=== PATIENT | female | born 1980 | race Caucasian/White ===

== ENCOUNTER 2018-07-10 11:46 | Inpatient (IN) ==
[2018-07-10] MEDS ORDERED: 0.9 % Sodium Chloride 1,000 ML IVC ONE ×3 (12:29→14:37)
[2018-07-10] MEDS ORDERED: cefTRIAXone 1,000 MG in Water for inj. (sterile) 20 ML 10 ML IVP ONE (12:42)
[2018-07-10] MEDS ORDERED: Ondansetron 4 MG/2 ML VIAL IVP ONE (12:43)
[2018-07-10] MEDS ORDERED: *HR* FentaNYL (PF) 100 MCG/2 ML VIAL IVP ONE (12:43)
[2018-07-10 12:44] LABS: Bilirubin,Urine Small (Negative); Blood,Urine Large (Negative); Clarity,Urine Turbid (Clear); Color,Urine Dark Yellow (Yellow); Glucose,Urine (UA) Normal (Normal); Ketones,Urine Trace mg/dL (Negative); Leukocyte Esterase,Urine Large (Negative); Nitrite,Urine Positive (Negative); PH,Urine 5.5 pH Units (5.0-8.0); Protein,Urine 100 mg/dL (Neg-Trace); Specific Gravity,Urine 1.019 (1.010-1.025); Urobilinogen,Urine Normal (Normal)
[2018-07-10 12:48] LABS: Bacteria,Urine Many per hpf (None-Few); Hyaline Casts,Urine Few per lpf (None-Few); RBC,Urine 15-30 per hpf (0-3); Squamous Epithelial Cell,Urine Many per lpf (None-Few); WBC,Urine TNTC per hpf (0-3)
[2018-07-10 13:23] LABS: Basophils # 0.1 K/mcL (0.0-0.2); Basophils % 0.4 %; Hematocrit 40.7 % (35.3-44.9); Hemoglobin 13.7 g/dL (11.5-15.4); Immature Granulocytes % 1.7 % (0-4); Lymphocytes # 0.9 K/mcL (0.6-4.6); Lymphocytes % 3.4 %; Mean Corpuscular HGB Conc 33.7 g/dL (31.6-35.5); Mean Corpuscular Hemoglobin 27.3 pg (28.0-33.3); Mean Corpuscular Volume 81.1 fL (83.0-100.0); Mean Platelet Volume 12.3 fL (9.4-12.4); Monocytes % 8.1 %; Neutrophils # 21.5 K/mcL (1.6-8.9); Platelet Count 229 K/mcL (140-400); Red Blood Count 5.02 M/mcL (3.82-4.97); Red Cell Distribution Width 14.3 % (11.5-14.5); Segmented Neutrophils % 86.4 %
[2018-07-10 13:33] LABS: INR 1.2
[2018-07-10 13:36] LABS: Activated Partial Thrombo Time 34.4 Seconds (26.0-36.0)
--- NOTE | 2018-07-10 13:43 | Emergency Department Note ---
Disposition Clinical Impression: Sepsis, Pyelonephritis, Hypokalemia, Hypophosphatemia Disposition: Admitted As Inpatient Condition: Serious Referrals: NONE,PCP [Primary Care Provider] - Forms: ED Satisfaction Letter, Work/School Release Time of Disposition: 14:20 Abdominal Pain HPI - General Chief Complaint: ED Abdominal Pain Stated Complaint: Left Flank pain/vomiting Time Seen by Provider: 07/10/18 12:31 Source: patient - History of Present Illness HPI Narrative: Patient presents emergency room with chief complaint of progressively increasing right flank pain, difficulty with urination, fevers, generalized weakness nausea and vomiting. She states that she was seen in urgent care diagnosed with a UTI she was sent over here to be admitted, but did not make it over here for 2 days, then she came to the ER 2 days ago but did not like the way she was treated so she left. She is supposed to be on antibiotics but she is not taking any antibiotics. She does endorse that she uses methamphetamine, although her states that she has not used for 2 weeks. She is a smoker denies alcohol. She denies headache neck pain chest pain or short of breath she endorses generalized fatigue and nausea and vomiting and progressive right flank pain with some urinary symptoms. She denies any other abdominal pain. She denies rashes. She denies midline back pain numbness weakness. She denies bowel or bladder incontinence. The patient states that she just overall feels terrible. Pain Scale: 10 - Related Data Allergies Allergy/AdvReac Type Severity Reaction Status Date / Time No Known Allergies Allergy Verified 07/10/18 11:59 All systems ED: reviewed and negative except as stated. 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 Psychiatric history: Reports: anxiety, depression - Social History Smoking status: Current every day smoker Alcohol use: Reports: none Drug use: Reports: methamphetamine, IV Drug Use Physical Exam - General Limitations: no limitations General appearance: alert, in no apparent distress, other (Abdominal appearance, slightly dehydrated in appearance however alert awake talking and nontoxic) - Head Head exam: atraumatic, normocephalic, normal inspection - Eye Eye exam: Present: normal appearance, PERRL, EOMI - Expanded Eye Exam Pupils: Left: reactive - ENT ENT exam: normal exam, normal oropharynx, mucous membranes moist - Expanded ENT Exam External ear exam: Present: normal external inspection Mouth exam: Present: normal external inspection Teeth exam: Present: normal inspection Throat exam: Present: normal inspection - Neck Neck exam: Present: normal inspection, full ROM, trachea midline, other (No rigidity). Absent: thyromegaly - Chest Chest inspection: Present: normal inspection, symmetric chest wall rise - Respiratory Respiratory exam: Present: normal lung sounds bilaterally - Cardiovascular Cardiovascular exam: Present: normal rhythm, tachycardia (Heart rate of 120 on the monitor), normal heart sounds. Absent: regular rate - Abdominal Exam Abdominal exam: Present: soft, Non-Tender, tenderness (No significant anterior intra-abdominal tenderness there is some mild right mid abdominal tenderness, more notably right CVA and flank tenderness.). Absent: distention, guarding, rebound, rigidity, Shoemaker's sign, Rovsing's sign, tenderness at McBurney's Point - Extremities Exam Extremities exam: Present: normal inspection, full ROM. Absent: tenderness, pedal edema - Expanded Upper Extremity Exam Shoulder exam: Present: normal inspection, full ROM Arm exam: Present: normal inspection, full ROM Elbow exam: Present: normal inspection, full ROM Forearm/Wrist exam: Present: normal inspection, full ROM Hand exam: Present: normal inspection, full ROM Vascular exam: Normal: capillary refill, radial pulse - Expanded Lower Extremity Exam Hip/Pelvis exam: Present: normal inspection, full ROM Upper leg exam: Present: normal inspection, full ROM Knee exam: Present: normal inspection, full ROM Lower leg exam: Present: normal inspection, full ROM Ankle exam: Present: normal inspection, full ROM Foot/toe exam: Present: normal inspection, full ROM Neurovascular/Tendon exam: Present: normal capillary refill. Absent: pulse d eficit, motor deficit, sensory deficit, tendon deficit - Back Exam Back exam: Present: normal inspection, full ROM. Absent: tenderness - Neurological Exam Neurological exam: Present: alert, oriented X3, CN II-XII intact, reflexes normal. Absent: motor sensory deficit - Expanded Neurological Exam Patient oriented to: Present: person, place, time Coma Scale Eye Opening: Spontaneous Coma Scale Motor Response: Obeys Commands Coma Scale Verbal Response: Oriented Coma Scale Total: 15 - Psychiatric Psychiatric exam: Present: normal affect, normal mood - Skin Skin exam: Present: warm, dry, intact, normal color - Other Other exam information: No generalized petechiae, no clinic lungs a cauda equina syndrome normal strength sensation and reflexes in lower extremities with no saddle anesthesia Course Vital Signs Temperature 97.6 F 07/10/18 11:57 Pulse Rate 114 07/10/18 11:57 Respiratory Rate 16 07/10/18 11:57 Blood Pressure 82/60 07/10/18 11:57 O2 Sat by Pulse Oximetry 100 07/10/18 11:57 Temperature 97.6 F 07/10/18 11:57 Pulse Rate 109 07/10/18 13:17 Respiratory Rate 20 07/10/18 13:17 Blood Pressure 96/66 07/10/18 13:17 O2 Sat by Pulse Oximetry 100 07/10/18 13:17 Oxygen Delivery Oxygen Delivery Room Air Abdominal Pain - MDM Narrative Medical decision making narrative: I did review her most recent evaluation she definitely had a UTI, but left without any further treatment she has not been on antibiotics. She presents with tachycardia, reported fevers nausea vomiting flank pain, initial blood pressure in triage was 82/60 however upon arrival to the room is over 100 systolic, with a map greater than 65. Sepsis order set was utilized. She was given 30 mL/kg bolus of IV fluids, she was started on IV Rocephin. White blood cell count is elevated at 24,900, lactic acid is 4.3 urinalysis consistent with UTI. Patient sent for CT scan of the abdomen and pelvis to evaluate for p yelonephritis or other acute intra-abdominal process. Potassium was low at 2.9 supple with IV potassium. No evidence of renal failure. Phosphorus is also low at 1.[address] scan of the abdomen and pelvis shows evidence for pyelonephritis without kidney stone, with swollen appearance of the right kidney with perinephric stranding. Patient was admitted to the hospital for further evaluation and management of urosepsis with pyelonephritis. Vital signs remained with a map above 65, with improving tachycardia here in the ER. Total critical care time by by myself excluding any procedures performed is 30 minutes - Lab Data Result diagrams: 07/10/18 12:30 07/10/18 12:30 Lab Results 07/10/18 07/10/18 07/10/18 Range/Units 12:08 12:30 12:30 WBC 24.9 H (4.3-11.1) K/mcL RBC 5.02 H (3.82-4.97) M/mcL Hgb 13.7 (11.5-15.4) g/dL Hct 40.7 (35.3-44.9) % MCV 81.1 L (83.0-100.0) fL MCH 27.3 L (28.0-33.3) pg MCHC 33.7 (31.6-35.5) g/dL RDW 14.3 (11.5-14.5) % Plt Count 229 (140-400) K/mcL MPV 12.3 (9.4-12.4) fL Immature Gran % 1.7 (0-4) % Seg Neutrophils % 86.4 % Lymphocytes % 3.4 % Monocytes % 8.1 % Eosinophils % 0.0 % Basophils % 0.4 % Neutrophils # 21.5 H (1.6-8.9) K/mcL Lymphocytes # 0.9 (0.6-4.6) K/mcL Monocytes # 2.0 H (0.0-1.3) K/mcL Eosinophils # 0.0 (0.0-0.6) K/mcL Basophils # 0.1 (0.0-0.2) K/mcL Toxic Vacuolation Present A (Not Present) Platelet Estimate Normal (Normal) PT 14.0 H (9.4-12.1) Seconds INR 1.2 APTT 34.4 (26.0-36.0) Seconds Sodium (136-145) mEq/L Potassium (3.5-5.1) mEq/L Chloride (98-107) mEq/L Carbon Dioxide (23-29) mEq/L BUN (6-20) mg/dL Creatinine (0.60-1.20) mg/dL Est GFR ( Amer) (> 60) Est GFR (Non-Af Amer) (> 60) BUN/Creatinine Ratio (6-26) Glucose (70-105) mg/dL Calculated Osmolality (280-300) Lactic Acid (0.5-2.2) mmol/L Calcium (8.6-10.3) mg/dL Phosphorus (2.7-4.5) mg/dL Magnesium (1.6-2.6) mg/dL Total Bilirubin (0.3-1.0) mg/dL Direct Bilirubin (0.0-0.2) mg/dL Indirect Bilirubin (0.0-1.2) mg/dL AST (13-39) Units/L ALT (7-52) Units/L Alkaline Phosphatase (34-104) Units/L Troponin I (< 0.04) ng/mL Serum Total Protein (6.4-8.9) g/dL Albumin (3.5-5.7) g/dL Globulin (2.4-3.5) g/dL Albumin/Globulin Ratio (1.1-2.2) Lipase (11-82) Units/L Urine Color Dark Yellow (Yellow) Urine Clarity Turbid A (Clear) Urine pH 5.5 (5.0-8.0) pH Units Ur Specific [place] 1.019 (1.010-1.025) Urine Protein 100 H (Neg-Trace) mg/dL Urine Glucose (UA) Normal (Normal) mg/dL Urine Ketones Trace H (Negative) mg/dL Urine Blood Large H (Negative) Urine Nitrite Positive A (Negative) Urine Bilirubin Small H (Negative) Urine Urobilinogen Normal (Normal) mg/dL Ur Leukocyte Esterase Large H (Negative) Urine Microscopic RBC 15-30 H (0-3) per hpf Urine Microscopic WBC TNTC H (0-3) per hpf Ur Squamous Epith Cells Many H (None-Few) per lpf Urine Bacteria Many H (None-Few) per hpf Hyaline Casts Few (None-Few) per lpf Ur Culture Indicated? NO. A (NO) 07/10/18 07/10/18 Range/Units 12:30 12:30 WBC (4.3-11.1) K/mcL RBC (3.82-4.97) M/mcL Hgb (11.5-15.4) g/dL Hct (35.3-44.9) % MCV (83.0-100.0) fL MCH (28.0-33.3) pg MCHC (31.6-35.5) g/dL RDW (11.5-14.5) % Plt Count (140-400) K/mcL MPV (9.4-12.4) fL Immature Gran % (0-4) % Seg Neutrophils % % Lymphocytes % % Monocytes % % Eosinophils % % Basophils % % Neutrophils # (1.6-8.9) K/mcL Lymphocytes # (0.6-4.6) K/mcL Monocytes # (0.0-1.3) K/mcL Eosinophils # (0.0-0.6) K/mcL Basophils # (0.0-0.2) K/mcL Toxic Vacuolation (Not Present) Platelet Estimate (Normal) PT (9.4-12.1) Seconds INR APTT (26.0-36.0) Seconds Sodium 133 L (136-145) mEq/L Potassium 2.9 L (3.5-5.1) mEq/L Chloride 98 (98-107) mEq/L Carbon Dioxide 21 L (23-29) mEq/L BUN 9 (6-20) mg/dL Creatinine 0.94 (0.60-1.20) mg/dL Est GFR ( Amer) > 60 (> 60) Est GFR (Non-Af Amer) > 60 (> 60) BUN/Creatinine Ratio 10 (6-26) Glucose 141 H (70-105) mg/dL Calculated Osmolality 277 L (280-300) Lactic Acid 4.3 H* (0.5-2.2) mmol/L Calcium 9.0 (8.6-10.3) mg/dL Phosphorus 1.0 L* (2.7-4.5) mg/dL Magnesium 1.7 (1.6-2.6) mg/dL Total Bilirubin 0.4 (0.3-1.0) mg/dL Direct Bilirubin 0.1 (0.0-0.2) mg/dL Indirect Bilirubin 0.3 (0.0-1.2) mg/dL AST 15 (13-39) Units/L ALT 9 (7-52) Units/L Alkaline Phosphatase 100 (34-104) Units/L Troponin I 0.03 (< 0.04) ng/mL Serum Total Protein 7.9 (6.4-8.9) g/dL Albumin 3.4 L (3.5-5.7) g/dL Globulin 4.5 H (2.4-3.5) g/dL Albumin/Globulin Ratio 0.8 L (1.1-2.2) Lipase 3 L (11-82) Units/L Urine Color (Yellow) Urine Clarity (Clear) Urine pH (5.0-8.0) pH Units Ur Specific [place] (1.010-1.025) Urine Protein (Neg-Trace) mg/dL Urine Glucose (UA) (Normal) mg/dL Urine Ketones (Negative) mg/dL Urine Blood (Negative) Urine Nitrite (Negative) Urine Bilirubin (Negative) Urine Urobilinogen (Normal) mg/dL Ur Leukocyte Esterase (Negative) Urine Microscopic RBC (0-3) per hpf Urine Microscopic WBC (0-3) per hpf Ur Squamous Epith Cells (None-Few) per lpf Urine Bacteria (None-Few) per hpf Hyaline Casts (None-Few) per lpf Ur Culture Indicated? (NO)
[2018-07-10 13:55] LABS: Platelet Estimate Normal (Normal)
[2018-07-10 13:56] LABS: Toxic Vacuolation Present (Not Present)
[2018-07-10 14:07] LABS: Alanine Aminotransferase 9 Units/L (7-52); Albumin 3.4 g/dL (3.5-5.7); Albumin/Globulin Ratio 0.8 (1.1-2.2); Alkaline Phosphatase 100 Units/L (34-104); Aspartate Amino Transferase 15 Units/L (13-39); BUN/Creatinine Ratio 10 (6-26); Bilirubin,Direct 0.1 mg/dL (0.0-0.2); Bilirubin,Indirect 0.3 mg/dL (0.0-1.2); Bilirubin,Total 0.4 mg/dL (0.3-1.0); Blood Urea Nitrogen 9 mg/dL (6-20); Carbon Dioxide 21 mEq/L (23-29); Chloride 98 mEq/L (98-107); Globulin 4.5 g/dL (2.4-3.5); Glucose 141 mg/dL (70-105); Lipase 3 Units/L (11-82); Magnesium 1.7 mg/dL (1.6-2.6); Osmolality,Calculated 277 (280-300); Potassium 2.9 mEq/L (3.5-5.1); Sodium 133 mEq/L (136-145); Total Protein 7.9 g/dL (6.4-8.9); Troponin I 0.03 ng/mL (< 0.04); eGFR For Non-African Americans > 60 (> 60)
[2018-07-10] MEDS ORDERED: 0.9 % Sodium Chloride 1,000 ML ONE (15:47)
--- NOTE | 2018-07-10 16:03 | Internal Med History&Physical ---
Date of Encounter: 07/10/18 Time of Encounter: 16:15 Internal Medicine - H&P: HPI Chief complaint: Right flank pain, fever and chills Admitted From: Emergency Dept Plans for Post Hospital Care: Home History of present illness: Ms. العراقي is a 38 year old female patient who presented to the ER with complaints of right flank pain along with fever and chills. She reports that her symptoms have been going on for about a month in a waxing and waning fashion. She was seen in the ER recently and was diagnosed with UTI but ended up leaving the hospital AGAINST MEDICAL ADVICE. She came back today as she continued to get worse. She noted a fever of 100.12 days back. She has been having some nausea and vomiting. No hematuria. She denies any chest pain or palpitations. No cough. No abdominal pain. No dysuria. Patient admits to using methamphetamine intravenously but she notes that her last use was 2 weeks back. She is adamant that she has quit this and will not be using it anymore. Past Med Surg Social Fam HX - Past Medical History Medical history: hepatitis Additional medical history: Hep C Psychiatric history: anxiety, depression - Social History Smoking Status: Current every day smoker Smokeless Tobacco Status: No Alcohol use: none Drug use: methamphetamine, IV Drug Use - Additional Family History Additional family history: Family history reviewed and found to be noncontributory at this time Internal Medicine - H&P: Meds Allergy/AdvReac Type Severity Reaction Status Date / Time No Known Allergies Allergy Verified 07/10/18 11:59 All Systems PM: A 10-system review of systems was performed and is negative for pertinent findings except as documented above in the HPI. - Constitutional Constitutional: chills, fever(s), malaise, no night sweats - EENT Eyes: no change in vision, no discharge, no pain, no photophobia Ears: no ear discharge, no ear pain, no tinnitus Nose, mouth and throat: no dysphagia, no nasal discharge, no neck pain, no sore throat - Cardiovascular Cardiovascular ROS IM: no chest pain, no diaphoresis, no dyspnea, no lightheadedness, no palpitations, no syncope - Respiratory Respiratory: no cough, no dyspnea, no wheezing, no excessive phlegm production - Gastrointestinal Gastrointestinal: nausea, vomiting, no abdominal pain, no diarrhea, no hematemesis, no hematochezia, no melena - Genitourinary Genitourinary: flank pain, no change in urinary stream, no dysuria, no hematuria - Musculoskeletal Musculoskeletal ROS IM: no numbness, no tingling - Integumentary Integumentary IM: no rash, no unusual bruising - Neurological Neurological ROS: no confusion, no convulsions, no focal weakness, no numbness, no tingling, no tremor(s) - Hematologic/Lymphatic Hematologic/Lymphatic: no easy bruising - Constitutional Vitals: Temp Pulse Resp BP Pulse Ox 97.6 F 105 24 106/66 100 07/10/18 11:57 07/10/18 15:02 07/10/18 15:02 07/10/18 15:02 07/10/18 15:02 General appearance: Present: cooperative, A&O X 3, pleasant, answers questions appropriately Exam: General: Patient is alert, mild distress, oriented x 3, thin built Head: atraumatic, normocephalic, ENT: Mucous membranes moist Eye: normal appearance, PERRL, no scleral icterus, no conjunctival injection Neck: normal inspection, trachea midline, full ROM, no carotid bruits Chest: normal inspection, symmetric chest rise Respiratory: Good respiratory effort. Normal breath sounds. No wheezing or crackles. Cardiovascular: Regular rate and rhythm. s1 and s2 normal No clicks, rubs, gallops, or murmurs. No pedal edema Abdomen: Abdomen is soft, nontender. Right CVA tenderness present. Bowel sounds are present Musculoskeletal: Spontaneously moving all extremities Skin: warm, dry, intact. Neuro: Alert oriented x 3 normal cranial nerves, no focal deficits Psych: Patient's affect is normal Internal Med - H&P Results - Labs CBC & Chem 7: 07/10/18 12:30 07/10/18 12:30 Labs: Short CBC 07/10/18 Range/Units 12:30 WBC 24.9 H (4.3-11.1) K/mcL Hgb 13.7 (11.5-15.4) g/dL Hct 40.7 (35.3-44.9) % Plt Count 229 (140-400) K/mcL Neutrophils # 21.5 H (1.6-8.9) K/mcL BMP 07/10/18 12:30 Sodium 133 L Potassium 2.9 L Chloride 98 Carbon Dioxide 21 L BUN 9 Creatinine 0.94 Glucose 141 H Calcium 9.0 Cardiac Enzymes 07/10/18 Range/Units 12:30 Troponin I 0.03 (< 0.04) ng/mL Liver Function 07/10/18 Range/Units 12:30 Total Bilirubin 0.4 (0.3-1.0) mg/dL Direct Bilirubin 0.1 (0.0-0.2) mg/dL AST 15 (13-39) Units/L ALT 9 (7-52) Units/L Alkaline Phosphatase 100 (34-104) Units/L Albumin 3.4 L (3.5-5.7) g/dL Urine 07/10/18 Range/Units 12:08 Urine Color Dark Yellow (Yellow) Urine Clarity Turbid A (Clear) Urine pH 5.5 (5.0-8.0) pH Units Ur Specific [place] 1.019 (1.010-1.025) Urine Protein 100 H (Neg-Trace) mg/dL Urine Glucose (UA) Normal (Normal) mg/dL - Impressions ITS Impressions Abdomen/Pelvis CT 07/10/18 12:42 IMPRESSION: Enlarged heterogeneous swollen appearance of the right kidney with mild perinephric stranding, findings most suggestive of pyelonephritis particularly given history of right flank pain and UTI though assessment limited by lack of IV contrast. D/ / Alvarado Reinoso MD / Alvarado Reinoso MD Interpreting Provider: Alvarado Reinoso MD - Assessment and Plan (1) Sepsis Current Visit: Yes Status: Suspected Assessment and plan: patient presenting with sepsis from acute pyelonephritis. We will treat with IV antibiotics. Follow blood and urine cultures. High risk for complications. Lactic acid elevated on presentation but has since improved. Continue IV fluid s. Qualifiers: Sepsis type: Escherichia coli Qualified Code(s): A41.51 - Sepsis due to Escherichia coli [E. coli] (2) Hypophosphatemia Current Visit: Yes Status: Acute Assessment and plan: Phosphorus 1. Replete intravenously in the ER. Will continue with the patient. Check levels in the morning. (3) Pyelonephritis Current Visit: Yes Status: Acute Assessment and plan: Patient with acute pyelonephritis involving the right kidney. Treat with IV antibiotics. Follow culture results. (4) Substance abuse Current Visit: Yes Status: Acute Assessment and plan: History of methamphetamine use. Patient reports that she has quit using 2 weeks back. Encouraged to continue cessation. 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 - Time Spent With Patient Total time spent is greater than 50% in coordination of care (as documented) at patient's floor/unit and/or counseling patient:
[2018-07-10] MEDS ORDERED: Naloxone 0.4 MG/ML INJ IVP PRN (16:27)
[2018-07-10] MEDS ORDERED: Ketorolac 30 MG/ML VIAL IVP PRN (16:28)
--- NOTE | 2018-07-10 16:31 | Electrocardiograph Report ---
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
--- NOTE | 2018-07-10 17:00 | Pulmonology Consult Note ---
Date of Encounter: 07/10/18 Time of Encounter: 13:00 Assessment and Plan (1) Sepsis Current Visit: Yes Status: Acute I have evaluated patient in the emergency room and she is feeling better after fluid resuscitation and she is being treated according to the sepsis protocol with IV fluid and appropriate coverage with antibiotics. Since patient hemodyna mically stable and there is no indication for the ICU admission at this time and this was discussed with the emergency room physician and recommended more aggressive fluid resuscitation since patient clinically has evidence of volume depletion. She would need follow-up lactic acid after resuscitation and everything else is being treated appropriately. If patient deteriorated clearly she will need to be admitted to ICU. There is also no beds at the ICU at this time and its appropriate to be treated in 2N. again this was discussed with the emergency room physician attending Thank you for consultation area please call for any questions. Qualifiers: Sepsis type: sepsis due to unspecified organism Qualified Code(s): A41.9 - Sepsis, unspecified organism (2) Pyelonephritis Current Visit: Yes Status: Acute History of Present Illness Consult date: 07/10/18 Requesting physician: Jean Carlos Fernando Reason for consult: other (Critical care evaluation) Chief complaint: Right flank pain History of present illness: This is pleasant 58-year-old female who presented to the emergency room complaining of the right flank pain with fever and chills. She was diagnosed with sepsis and emergency room physician called for evaluation because the hospitalist wanted this patient to be in ICU, and patient was responding to the fluid and request was for critical care and ICU admission evaluation. Patient is not having any distress and her pain is under better control. She stated this is first time she has sepsis from urinary tract infection, however she was seen and evaluated before and she was advised to come to the hospital, however she was not kept in the hospital because patient did not want that. Patient was found to have fever and have some nausea and vomiting. She denies any hematuria and denies any other symptoms. Patient's feeling better after fluid resuscitation. Past Med Surg Social Fam HX - Past Medical History Medical history: hepatitis Additional medical history: Hep C Psychiatric history: anxiety, depression - Social History Smoking Status: Current every day smoker Smokeless Tobacco Status: No Alcohol use: none Drug use: methamphetamine, IV Drug Use Medications and Allergies Allergy/AdvReac Type Severity Reaction Status Date / Time No Known Allergies Allergy Verified 07/10/18 11:59 All Systems: The remainder of the systems were reviewed and are negative Physical Examination Vital Signs: Vital Signs, Last 4 Hours Pulse Resp BP Pulse Ox 07/10/18 16:00 103 24 110/76 100 07/10/18 15:02 105 24 106/66 100 07/10/18 13:17 109 20 96/66 100 General: Patient is in no acute distress. HEENT: Normocephalic atraumatic, pupils are equal round and reactive to light and accommodation, anicteric sclera, nares is patent, mucous membranes moist, no JVD, trachea is midline Cardiovascular: Normal sinus rhythm, S1 and S2 audible, no murmur or rubs Respiratory: Clear to auscultation bilaterally. No acute distress. No wheezing. Patient not using accessory muscles. Abdomen: Soft, nondistended, positive bowel sounds in all 4 quadrants. She had some tenderness in the right flank area in the costophrenic angle. Extremities: Warm, dry, no lower extremity edema. Normal capillary refill. Neuro: Alert and oriented and follows commands. Grossly no neuro deficits. Skin: Warm to touch : No obvious abnormalities. Psych: Normal Results - Laboratory Findings CBC and BMP: 07/10/18 12:30 07/10/18 12:30 PT/INR, D-dimer PT 14.0 Seconds (9.4-12.1) H 07/10/18 12:30 Abnormal lab findings: Abnormal lab results WBC 24.9 K/mcL (4.3-11.1) H 07/10/18 12:30 RBC 5.02 M/mcL (3.82-4.97) H 07/10/18 12:30 MCV 81.1 fL (83.0-100.0) L 07/10/18 12:30 MCH 27.3 pg (28.0-33.3) L 07/10/18 12:30 Neutrophils # 21.5 K/mcL (1.6-8.9) H 07/10/18 12:30 Monocytes # 2.0 K/mcL (0.0-1.3) H 07/10/18 12:30 Toxic Vacuolation Present (Not Present) A 07/10/18 12:30 PT 14.0 Seconds (9.4-12.1) H 07/10/18 12:30 Sodium 133 mEq/L (136-145) L 07/10/18 12:30 Potassium 2.9 mEq/L (3.5-5.1) L 07/10/18 12:30 Carbon Dioxide 21 mEq/L (23-29) L 07/10/18 12:30 Glucose 141 mg/dL (70-105) H 07/10/18 12:30 Calculated Osmolality 277 (280-300) L 07/10/18 12:30 Phosphorus 1.0 mg/dL (2.7-4.5) L* 07/10/18 12:30 Albumin 3.4 g/dL (3.5-5.7) L 07/10/18 12:30 Globulin 4.5 g/dL (2.4-3.5) H 07/10/18 12:30 Albumin/Globulin Ratio 0.8 (1.1-2.2) L 07/10/18 12:30 Lipase 3 Units/L (11-82) L 07/10/18 12:30 Urine Clarity Turbid (Clear) A 07/10/18 12:08 Urine Protein 100 mg/dL (Neg-Trace) H 07/10/18 12:08 Urine Ketones Trace mg/dL (Negative) H 07/10/18 12:08 Urine Blood Large (Negative) H 07/10/18 12:08 Urine Nitrite Positive (Negative) A 07/10/18 12:08 Urine Bilirubin Small (Negative) H 07/10/18 12:08 Ur Leukocyte Esterase Large (Negative) H 07/10/18 12:08 Urine Microscopic RBC 15-30 per hpf (0-3) H 07/10/18 12:08 Urine Microscopic WBC TNTC per hpf (0-3) H 07/10/18 12:08 Ur Squamous Epith Cells Many per lpf (None-Few) H 07/10/18 12:08 Urine Bacteria Many per hpf (None-Few) H 07/10/18 12:08 Ur Culture Indicated? NO. (NO) A 07/10/18 12:08 - Microbiology Findings Microbiology Findings: Microbiology, Last 48 Hours 07/10/18 12:30 Blood Culture - Preliminary Peripheral Venipuncture Culture is incubating and being continuously monitored for growth. Final report to follow. 07/10/18 12:40 Blood Culture - Preliminary Peripheral Venipuncture Culture is incubating and being continuously monitored for growth. Final report to follow. - Clinical Findings Intake & Output: Intake & Output 07/10/18 07/10/18 07/10/18 07:59 15:59 23:59 Intake Total 1110 / 1110 Balance 1110 / 1110 Weight 60.691 kg Consult Discharge Plan - Plan Referrals: NONE,PCP [Primary Care Provider] -
[2018-07-10] MEDS: Ringers Solution, Lactated 1,000 ML IVC SCH (18:29)
[2018-07-10] MEDS: *HR* Heparin 5,000 UNIT/ML VIAL SQ SCH (18:31)
[2018-07-11 01:24] LABS: Enterococcus by PCR Not Detected (Not Detect); Staphylococcus aureus by PCR Not Detected (Not Detect); Staphylococcus by PCR Not Detected (Not Detect); Streptococcus agalactiae(B)PCR Not Detected (Not Detect); Streptococcus by PCR Not Detected (Not Detect); Streptococcus pneumoniae PCR Not Detected (Not Detect); Streptococcus pyogenes (A) PCR Not Detected (Not Detect); blaKPC Carbapenem-Resist Gene Not Detected (Not Detect)
[2018-07-11 01:25] LABS: Acinetobacter baumannii by PCR Not Detected (Not Detect); Candida albicans by PCR Not Detected (Not Detect); Candida glabrata by PCR Not Detected (Not Detect); Candida krusei by PCR Not Detected (Not Detect); Candida parapsilosis by PCR Not Detected (Not Detect); Candida tropicalis by PCR Not Detected (Not Detect); Enterobacter cloacae Cmplx PCR Not Detected (Not Detect); Enterobacteriaceae by PCR DETECTED (Not Detect); Escherichia coli by PCR DETECTED (Not Detect); Klebsiella oxytoca by PCR Not Detected (Not Detect); Klebsiella pneumoniae by PCR Not Detected (Not Detect); Proteus by PCR Not Detected (Not Detect); Pseudomonas aeruginosa by PCR Not Detected (Not Detect); Serratia marcescens by PCR Not Detected (Not Detect)
[2018-07-11] MEDS: Ringers Solution, Lactated 1,000 ML IVC SCH ×3 (02:37→19:24)
[2018-07-11 07:08] LABS: Basophils % 0.1 %; Eosinophils # 0.1 K/mcL (0.0-0.6); Eosinophils % 0.2 %; Hematocrit 31.7 % (35.3-44.9); Hemoglobin 10.3 g/dL (11.5-15.4); Immature Granulocytes % 2.7 % (0-4); Lymphocytes # 1.6 K/mcL (0.6-4.6); Lymphocytes % 7.5 %; Mean Corpuscular HGB Conc 32.5 g/dL (31.6-35.5); Mean Corpuscular Hemoglobin 26.5 pg (28.0-33.3); Mean Corpuscular Volume 81.5 fL (83.0-100.0); Mean Platelet Volume 12.7 fL (9.4-12.4); Monocytes # 2.3 K/mcL (0.0-1.3); Monocytes % 10.8 %; Neutrophils # 16.9 K/mcL (1.6-8.9); Platelet Count 193 K/mcL (140-400); Red Blood Count 3.89 M/mcL (3.82-4.97); Red Cell Distribution Width 14.6 % (11.5-14.5); Segmented Neutrophils % 78.7 %
[2018-07-11] MEDS: *HR* Heparin 5,000 UNIT/ML VIAL SQ SCH ×2 (07:27→16:28)
[2018-07-11 07:30] LABS: BUN/Creatinine Ratio 8 (6-26); Blood Urea Nitrogen 6 mg/dL (6-20); Calcium 7.6 mg/dL (8.6-10.3); Carbon Dioxide 19 mEq/L (23-29); Chloride 109 mEq/L (98-107); Glucose 98 mg/dL (70-105); Osmolality,Calculated 290 (280-300); Potassium 3.9 mEq/L (3.5-5.1); Sodium 141 mEq/L (136-145); eGFR For Non-African Americans > 60 (> 60)
[2018-07-11] MEDS: *HR* HYDROcodone/Acet 5/325 mg TABLET PO PRN ×2 (07:41→19:51)
[2018-07-11] MEDS: cefTRIAXone 2,000 MG in Water for inj. (sterile) 20 ML 20 ML IVP SCH (13:09)
[2018-07-11] MEDS ORDERED: cefTRIAXone 1,000 MG in Water for inj. (sterile) 20 ML 10 ML IVP SCH (14:00)
--- NOTE | 2018-07-11 17:24 | Internal Med Progress Note ---
Hospitalist Progress Note - Encounter Date of Encounter: 07/11/18 Time of Encounter: 17:21 - Subjective Interval History: Complain of right flank pain but better. Review the lab and vitals. Patient denies fever chills nausea vomiting headache dizziness chest pain short of breath diarrhea - Exam Vitals: Temp Pulse Resp BP Pulse Ox 98.0 F 108 18 100/69 100 07/11/18 16:40 07/11/18 16:40 07/11/18 16:40 07/11/18 16:40 07/11/18 16:40 Exam: General: No acute distress. Eye: PERRLA EOMI Neck: Supple Respiratory: Clear to auscultation bilaterally No wheezing or crackles. Cardiovascular: Regular rate and rhythm. s1 and s2 normal no murmur. No pedal edema Abdomen: Abdomen is soft, nontender. Right CVA tenderness present. Bowel sounds are present Musculoskeletal: Spontaneously moving all extremities Skin: warm, dry, intact. Neuro: Alert oriented x 3 normal cranial nerves, no focal deficits Psych: Patient's affect is normal - Assessment and Plan (1) Sepsis Current Visit: Yes Status: Acute Assessment and Plan: patient presenting with sepsis from acute pyelonephritis. We will treat with IV antibiotics. Follow blood and urine cultures-no growth yet High risk for complications. Lactic acid elevated on presentation but has since improved. Continue IV fluids. (2) Pyelonephritis Current Visit: Yes Status: Acute Assessment and Plan: Patient with acute pyelonephritis involving the right kidney. Continue IV antibiotic. (3) Hypophosphatemia Current Visit: Yes Status: Acute Assessment and Plan: Phosphorus 1 on admission but improved after replacement. (4) Substance abuse Current Visit: Yes Status: Acute Assessment and Plan: History of methamphetamine use. Patient reports that she has quit using 2 weeks back. Encouraged to continue cessation. sand worker consult. - Time Spent with Patient Total time spent is greater than 50% in coordination of care (as documented) at patient's floor/unit and/or counseling patient: 25 - 35 minutes Plan of Care Discussed with: patient Internal Medicine: Result - Labs CBC & Chem 7: 07/11/18 05:54 07/11/18 05:54 Labs: Short CBC 07/11/18 Range/Units 05:54 WBC 21.5 H (4.3-11.1) K/mcL Hgb 10.3 L D (11.5-15.4) g/dL Hct 31.7 L (35.3-44.9) % Plt Count 193 (140-400) K/mcL Neutrophils # 16.9 H (1.6-8.9) K/mcL BMP 07/11/18 05:54 Sodium 141 Potassium 3.9 D Chloride 109 H Carbon Dioxide 19 L BUN 6 Creatinine 0.71 Glucose 98 Calcium 7.6 L - ABG Interpretation ABG results: PT/INR, D-dimer PT 14.0 Seconds (9.4-12.1) H 07/10/18 12:30 Consult Discharge Plan - Plan Referrals: NONE,PCP [Primary Care Provider] - (1) Sepsis Qualifiers: Sepsis type: sepsis due to unspecified organism Qualified Code(s): A41.9 - Sepsis, unspecified organism
[2018-07-11] MEDS: Acetaminophen 325 MG TABLET PO PRN (19:51)
[2018-07-12] MEDS: Ringers Solution, Lactated 1,000 ML IVC SCH ×3 (04:30→13:23)
[2018-07-12] MEDS: *HR* Heparin 5,000 UNIT/ML VIAL SQ SCH ×2 (05:55→16:50)
[2018-07-12] MEDS: Acetaminophen 325 MG TABLET PO PRN (05:57)
[2018-07-12] MEDS: *HR* HYDROcodone/Acet 5/325 mg TABLET PO PRN ×2 (05:57→20:33)
[2018-07-12 11:36] LABS: Basophils % 0.2 %; Eosinophils # 0.1 K/mcL (0.0-0.6); Eosinophils % 0.8 %; Hemoglobin 10.1 g/dL (11.5-15.4); Lymphocytes # 1.5 K/mcL (0.6-4.6); Lymphocytes % 9.2 %; Mean Corpuscular HGB Conc 32.6 g/dL (31.6-35.5); Mean Corpuscular Hemoglobin 27.1 pg (28.0-33.3); Mean Corpuscular Volume 83.1 fL (83.0-100.0); Mean Platelet Volume 11.8 fL (9.4-12.4); Neutrophils # 13.7 K/mcL (1.6-8.9); Platelet Count 218 K/mcL (140-400); Red Blood Count 3.73 M/mcL (3.82-4.97); Red Cell Distribution Width 15.3 % (11.5-14.5); Segmented Neutrophils % 82.8 %
[2018-07-12 11:41] LABS: BUN/Creatinine Ratio 11 (6-26); Blood Urea Nitrogen 7 mg/dL (6-20); Carbon Dioxide 21 mEq/L (23-29); Chloride 109 mEq/L (98-107); Glucose 124 mg/dL (70-105); Osmolality,Calculated 281 (280-300); Potassium 4.4 mEq/L (3.5-5.1); Sodium 136 mEq/L (136-145); eGFR For Non-African Americans > 60 (> 60)
[2018-07-12] MEDS: cefTRIAXone 2,000 MG in Water for inj. (sterile) 20 ML 20 ML IVP SCH (13:20)
--- NOTE | 2018-07-12 16:56 | Internal Med Progress Note ---
Hospitalist Progress Note - Encounter Date of Encounter: 07/12/18 Time of Encounter: 16:54 - Subjective Interval History: Feeling better in flank pain. No fever overnight. Review the lab with trending down white count. Blood culture with Escherichia coli. Repeat blood culture ordered today Denies fever chills nausea vomiting headache dizziness chest pain shortness of breath urinary or bowel complaint. - Exam Vitals: Temp Pulse Resp BP Pulse Ox 98.0 F 80 16 103/67 98 07/12/18 11:20 07/12/18 11:20 07/12/18 11:20 07/12/18 11:20 07/12/18 11:20 Exam: General: No acute distress. Eye: PERRLA EOMI Neck: Supple Respiratory: Clear to auscultation bilaterally Cardiovascular: Regular rate and rhythm. s1 and s2 normal no murmur. No pedal edema Abdomen: Abdomen is soft, nontender. Right CVA tenderness present. Bowel sounds are present Musculoskeletal: Spontaneously moving all extremities Skin: warm, dry, intact. Neuro: Alert oriented x 3 normal cranial nerves, no focal deficits Psych: Patient's affect is normal - Assessment and Plan (1) Sepsis Current Visit: Yes Status: Acute Assessment and Plan: patient presenting with sepsis from acute pyelonephritis. Continue IV antibiotics. Trending down white count. Blood culture with Escherichia coli. Will repeat blood culture today. Decrease IV fluid 75 mL per hour. Monitor lactate. Under discharge patient in 1-2 days if continued to improve clinically and repeat blood culture negative (2) Pyelonephritis Current Visit: Yes Status: Acute Assessment and Plan: Patient with acute pyelonephritis involving the right kidney. Continue IV antibiotic. (3) Hypophosphatemia Current Visit: Yes Status: Acute Assessment and Plan: Phosphorus 1 on admission but improved after replacement. (4) Substance abuse Current Visit: Yes Status: Acute Assessment and Plan: History of methamphetamine use. Patient reports that she has quit using 2 weeks back. Encouraged to continue cessation. neon sign worker consult. - Time Spent with Patient Total time spent is greater than 50% in coordination of care (as documented) at patient's floor/unit and/or counseling patient: Internal Medicine: Result - Labs CBC & Chem 7: 07/12/18 11:01 07/12/18 11:01 Labs: Short CBC 07/12/18 Range/Units 11:01 WBC 16.6 H (4.3-11.1) K/mcL Hgb 10.1 L (11.5-15.4) g/dL Hct 31.0 L (35.3-44.9) % Plt Count 218 (140-400) K/mcL Neutrophils # 13.7 H (1.6-8.9) K/mcL BMP 07/12/18 11:01 Sodium 136 Potassium 4.4 Chloride 109 H Carbon Dioxide 21 L BUN 7 Creatinine 0.64 Glucose 124 H Calcium 8.0 L - ABG Interpretation ABG results: PT/INR, D-dimer PT 14.0 Seconds (9.4-12.1) H 07/10/18 12:30 Consult Discharge Plan - Plan Referrals: Brendan Ayala DO [Resident] - 07/20/18 1:30 pm (Please take the new patient packet with you to your doctors office filled out /If you do not receive this packet in the mail please arrive 30 minutes early to fill out paper work. If you receive this packet in the mail show up 15 minutes early to your appointment. Please take with you to your appointment Picture ID, Insurance Cards, list of all medications including over the counter meds. This office does not give out controlled medication. If you are not able to make this follow up appointment please call [phone] 24 hours prior to your appointment.) (1) Sepsis Qualifiers: Sepsis type: sepsis due to unspecified organism Qualified Code(s): A41.9 - Sepsis, unspecified organism
[2018-07-13] MEDS: *HR* Heparin 5,000 UNIT/ML VIAL SQ SCH (06:09)
[2018-07-13 07:47] LABS: Basophils % 0.2 %; Eosinophils # 0.1 K/mcL (0.0-0.6); Eosinophils % 0.9 %; Hematocrit 29.7 % (35.3-44.9); Hemoglobin 9.8 g/dL (11.5-15.4); Immature Granulocytes % 0.6 % (0-4); Lymphocytes # 1.5 K/mcL (0.6-4.6); Lymphocytes % 13.4 %; Mean Corpuscular Hemoglobin 26.6 pg (28.0-33.3); Mean Corpuscular Volume 80.7 fL (83.0-100.0); Monocytes # 0.9 K/mcL (0.0-1.3); Monocytes % 7.7 %; Neutrophils # 8.9 K/mcL (1.6-8.9); Platelet Count 275 K/mcL (140-400); Red Blood Count 3.68 M/mcL (3.82-4.97); Red Cell Distribution Width 14.6 % (11.5-14.5); Segmented Neutrophils % 77.2 %
[2018-07-13 08:09] LABS: BUN/Creatinine Ratio 10 (6-26); Blood Urea Nitrogen 6 mg/dL (6-20); Calcium 7.7 mg/dL (8.6-10.3); Carbon Dioxide 24 mEq/L (23-29); Chloride 106 mEq/L (98-107); Glucose 88 mg/dL (70-105); Osmolality,Calculated 285 (280-300); Phosphorous 3.3 mg/dL (2.7-4.5); Potassium 3.6 mEq/L (3.5-5.1); Sodium 139 mEq/L (136-145); eGFR For Non-African Americans > 60 (> 60)
[2018-07-13 08:30] LABS: Platelet Estimate Normal (Normal)
[2018-07-13] MEDS: *HR* HYDROcodone/Acet 5/325 mg TABLET PO PRN (11:56)
[2018-07-13] MEDS: cefTRIAXone 2,000 MG in Water for inj. (sterile) 20 ML 20 ML IVP SCH (16:06)
--- NOTE | 2018-07-13 16:14 | Internal Med Progress Note ---
Hospitalist Progress Note - Encounter Date of Encounter: 07/13/18 Time of Encounter: 16:11 - Subjective Interval History: Her flank pain is better. Ambulating and tolerating oral diet. Review of the lab with trending down white count. Repeat blood culture done yesterday with no growth yet Denies nausea vomiting headache dizziness chest pain shortness of breath. Has constipation - Exam Vitals: Temp Pulse Resp BP Pulse Ox 98.0 F 83 18 125/97 97 07/13/18 11:35 07/13/18 11:35 07/13/18 11:35 07/13/18 11:35 07/13/18 11:35 Exam: General: No acute distress. Eye: PERRLA EOMI Neck: Supple Respiratory: Clear to auscultation bilaterally Cardiovascular: Regular rate and rhythm. s1 and s2 normal no murmur. No pedal edema Abdomen: Abdomen is soft, nontender. Right CVA tenderness present-better. Bowel sounds are present Musculoskeletal: Spontaneously moving all extremities Skin: warm, dry, intact. Neuro: Alert oriented x 3 normal cranial nerves, no focal deficits Psych: Patient's affect is normal - Assessment and Plan (1) Sepsis Current Visit: Yes Status: Acute Assessment and Plan: patient presenting with sepsis from acute pyelonephritis. Continue IV antibiotics. Trending down white count. Blood culture with Escherichia coli. Repeat blood culture with no growth yet. Will stop IV fluid. Repeat blood culture with no growth yet-less than 24-hour Plan to discharge patient tomorrow if no growth and blood culture. (2) Pyelonephritis Current Visit: Yes Status: Acute Assessment and Plan: Patient with acute pyelonephritis involving the right kidney. Continue IV antibiotic for now and will plan to discharge on oral antibiotic at the time of discharge. (3) Hypophosphatemia Current Visit: Yes Status: Acute Assessment and Plan: Phosphorus 1 on admission but improved after replacement. (4) Substance abuse Current Visit: Yes Status: Acute Assessment and Plan: History of methamphetamine use. Patient reports that she has quit using 2 weeks back. Encouraged to continue cessation. coke worker consult. (5) DVT prophylaxis Current Visit: Yes Status: Acute Assessment and Plan: SCDs - Time Spent with Patient Total time spent is greater than 50% in coordination of care (as documented) at patient's floor/unit and/or counseling patient: 25 - 35 minutes Plan of Care Discussed with: patient Internal Medicine: Result - Labs CBC & Chem 7: 07/13/18 07:16 07/13/18 07:16 Labs: Short CBC 07/13/18 Range/Units 07:16 WBC 11.5 H (4.3-11.1) K/mcL Hgb 9.8 L (11.5-15.4) g/dL Hct 29.7 L (35.3-44.9) % Plt Count 275 (140-400) K/mcL Neutrophils # 8.9 (1.6-8.9) K/mcL BMP 07/13/18 07:16 Sodium 139 Potassium 3.6 Chloride 106 Carbon Dioxide 24 BUN 6 Creatinine 0.62 Glucose 88 Calcium 7.7 L - ABG Interpretation ABG results: PT/INR, D-dimer PT 14.0 Seconds (9.4-12.1) H 07/10/18 12:30 Consult Discharge Plan - Plan Referrals: Brendan Ayala DO [Resident] - 07/20/18 1:30 pm (Please take the new patient packet with you to your doctors office filled out /If you do not receive this packet in the mail please arrive 30 minutes early to fill out paper work. If you receive this packet in the mail show up 15 minutes early to your appointment. Please take with you to your appointment Picture ID, Insurance Cards, list of all medications including over the counter meds. This office does not give out controlled medication. If you are not able to make this follow up appointment please call [phone] 24 hours prior to your appointment.) ____ (1) Sepsis Qualifiers: Sepsis type: sepsis due to unspecified organism Qualified Code(s): A41.9 - Sepsis, unspecified organism
[2018-07-14 04:56] LABS: Basophils % 0.2 %; Eosinophils # 0.1 K/mcL (0.0-0.6); Eosinophils % 1.2 %; Hematocrit 29.9 % (35.3-44.9); Hemoglobin 9.7 g/dL (11.5-15.4); Immature Granulocytes % 0.7 % (0-4); Lymphocytes # 1.6 K/mcL (0.6-4.6); Lymphocytes % 18.7 %; Mean Corpuscular HGB Conc 32.4 g/dL (31.6-35.5); Mean Corpuscular Hemoglobin 26.4 pg (28.0-33.3); Mean Corpuscular Volume 81.3 fL (83.0-100.0); Monocytes # 0.8 K/mcL (0.0-1.3); Monocytes % 9.1 %; Neutrophils # 6.1 K/mcL (1.6-8.9); Platelet Count 296 K/mcL (140-400); Red Blood Count 3.68 M/mcL (3.82-4.97); Red Cell Distribution Width 14.7 % (11.5-14.5); Segmented Neutrophils % 70.1 %
[2018-07-14 05:16] LABS: BUN/Creatinine Ratio 9 (6-26); Blood Urea Nitrogen 6 mg/dL (6-20); Calcium 7.7 mg/dL (8.6-10.3); Carbon Dioxide 25 mEq/L (23-29); Chloride 108 mEq/L (98-107); Glucose 107 mg/dL (70-105); Osmolality,Calculated 286 (280-300); Potassium 3.5 mEq/L (3.5-5.1); Sodium 139 mEq/L (136-145); eGFR For Non-African Americans > 60 (> 60)
[2018-07-14 05:49] LABS: Platelet Estimate Normal (Normal)
[2018-07-14 05:50] LABS: Reactive Lymphocytes Present (Not Present)
[2018-07-14 11:42] VITALS: BP 114/81
[2018-07-14] MEDS: Acetaminophen 325 MG TABLET PO PRN (11:52)
--- NOTE | 2018-07-14 15:34 | Discharge Summary ---
- NOTES TO OUTPATIENT PROVIDER Notes to Outpatient Provider: Follow-up PCP in 3-5 days-patient has to make appointment. Final blood culture report has to be followed by PCP Orders not resulted at time of discharge: Pending orders 07/12/18 17:32 Culture,Blood [] Routine Date of Encounter: 07/14/18 Time of Encounter: 15:31 - Discharge Diagnosis (1) Sepsis Priority: Primary Status: Acute Assessment and Plan: Gram-negative bacteremia with Escherichia coli. patient presenting with sepsis from acute pyelonephritis. Continued IV antibiotics Rocephin. normal white count. Blood culture with Escherichia coli. Repeat blood culture with no growth yet Will discharge patient on Levaquin 500 milligrams daily for 9 more days. Total 14 days antibiotic therapy. Patient already got 5 days of antibiotic including today Qualifiers: Sepsis type: sepsis due to unspecified organism Qualified Code(s): A41.9 - Sepsis, unspecified organism (2) Pyelonephritis Priority: Primary Status: Acute Assessment and Plan: Patient with acute pyelonephritis involving the right kidney. CT abdomen and pelvis no obstructive uropathy. First episode of pyelonephritis. Patient will be discharged on antibiotics with follow-up PCP within one week. May need urology referral as per PCP advice (3) Hypophosphatemia Priority: Primary Status: Acute Assessment and Plan: Phosphorus 1 on admission but improved after replacement. (4) Substance abuse Priority: Secondary Status: Acute Assessment and Plan: History of methamphetamine use. Patient reports that she has quit using 2 weeks back. Encouraged to continue cessation. mental health social worker consult. Hospital course: Ms. العراقي is a 38 year old female patient got admitted for sepsis due to underlying pyelonephritis. Patient also developed gram-negative bacteriuria with Escherichia coli. Patient continued to improve on IV antibiotic and became symptom-free. Repeat blood culture with no growth yet for 48 hour. Will discharge patient on Levaquin. Please see detail in diagnosis section of discharge summary. At the time of discharge patient clinically stable tolerating oral diet and ambulating well. Discharge discussed with: patient, family, nurse - Time Spent with Patient Total time spent providing and/or coordinating discharge services: - Discharge Medications Prescriptions: No Action No Known Home Drugs 1 each .ROUTE AD each Home Medications: No Known Home Drugs 07/11/18 [History] Allergies/Adverse Reactions: Allergy/AdvReac Type Severity Reaction Status Date / Time No Known Allergies Allergy Verified 07/10/18 11:59 Date of admission: 07/10/18 17:01 Primary care physician: PCP NONE Consults: 07/10/18 16:35 Consult to Wet Mix Operator [CONS] Routine Reason for SW Consult: Substance abuse 07/10/18 16:59 Consult to Pulmonology [CONS] Routine Consulting Provider: [facility] Reason for Consult: Sepsis Time Notified: 16:59 Call Completed: Yes - Constitutional Vitals: Temp Pulse Resp BP Pulse Ox 98.2 F 86 18 114/81 97 07/14/18 11:55 07/14/18 11:55 07/14/18 11:55 07/14/18 11:55 07/14/18 11:55 General appearance: Present: cooperative, A&O X 3, pleasant, answers questions appropriately Exam: General appearance: No acute distress, A&O X 3 ENT exam: Moist oral mucosa Neck nontender, supple Respiratory exam: Clear to auscultation bilaterally Cardiovascular exam: Regular rate and rhythm, no systolic murmur Abdominal exam: Soft, nontender, nondistended, positive bowel sounds Extremities exam: No calf tenderness, no pedal edema Present: Skin-no rash, warm, dry, intact Neurological exam: Alert, awake, oriented 3, CN II-XII intact, no focal deficits. - Patient Status Disposition: Home, Self-Care Condition: Fair Overall status at discharge: patient is progressing back to baseline - Discharge Instructions Follow Up With: Brendan Ayala DO [Resident] - 07/20/18 1:30 pm (Please take the new patient packet with you to your doctors office filled out /If you do not receive this packet in the mail please arrive 30 minutes early to fill out paper work. If you receive this packet in the mail show up 15 minutes early to your appointment. Please take with you to your appointment Picture ID, Insurance Cards, list of all medications including over the counter meds. This office does not give out controlled medication. If you are not able to make this follow up appointment please call [phone] 24 hours prior to your appointment.) - Diet and Activity Activity: increase activity as tolerated Diet: advance to your usual diet
[2018-07-14] MEDS ORDERED: levoFLOXacin 500 MG TABLET PO SCH (15:45)
[2018-07-15] MEDS ORDERED: levoFLOXacin 500 MG TABLET PO SCH (09:00)
== END 2018-07-14 16:43 | disposition home or self-care (01) | DRG 720 ==
LOC: 2NNU 11:46 → EMEROOARM 11:46 → 2NNU 18:12
PROVIDERS: ADMIT Internal Medicine; ATTEND Internal Medicine Nephrology